=== PATIENT | male | born 1965 | race African-American/Black ===

== ENCOUNTER 2021-02-12 21:20 | Emergency (ER) | payer OTHER ==
[~2021-02-12] VITALS: Ht 188 cm; Wt 82.0 kg
[2021-02-12 23:44] LABS: BASOPHILS % 0.5 % (0.0-2.0); EOSINOPHILS % 2.6 % (0.0-5.0); HEMATOCRIT. 43.6 % (42.0-52.0); HEMOGLOBIN. 14.8 g/dL (14.0-18.0); LYMPHOCYTES % 22.2 % (20.0-50.0); MEAN CORPUSCULAR HEMOGLOBIN 30.7 pg (28.0-32.0); MEAN CORPUSCULAR VOLUME 90.7 fL (80.0-94.0); MEAN PLATELET VOLUME 8.2 fl (7.4-10.4); MONOCYTES % 5.9 % (2.0-8.0); NEUTROPHILS % 68.8 % (40.0-76.0); PLATELET 194 x1000/uL (130-400); RED BLOOD CELL COUNT 4.81 mill/uL (4.7-6.1); RED CELL DISTRIBUTION WIDTH 14.2 % (11.6-14.6)
[2021-02-12 23:51] LABS: CHLORIDE 107 mEq/L (98-107)
[2021-02-13 01:45] VITALS: BP 111/78
== END 2021-02-13 01:46 | disposition home or self-care (01) ==
LOC: ER 21:20
DX: R06.02 Shortness of breath (principal); F41.9 Anxiety disorder, unspecified; J44.1 Chronic obstructive pulmonary disease with (acute) exacerbation
CPT/HCPCS: 36415; 71045; 80053; 84443; 84484; 85025; 93005; 99285

== ENCOUNTER 2021-03-20 13:59 | Inpatient (IN) | payer MEDICAID, OTHER ==
[~2021-03-20] VITALS: Ht 200.7 cm; Wt 75.3 kg
[2021-03-20] MEDS ORDERED: METHYLPREDNISOLONE SOD SUCC 125 MG/2 ML VIAL IV STA (15:14)
[2021-03-20] MEDS ORDERED: IPRATROPIUM BROMIDE (0.02%) 0.5MG/2.5ML NEB HHN STA (15:14)
[2021-03-20 15:50] LABS: BASOPHILS % 1.1 % (0.0-2.0); EOSINOPHILS % 11.4 % (0.0-5.0); HEMATOCRIT. 43.5 % (42.0-52.0); HEMOGLOBIN. 14.5 g/dL (14.0-18.0); LYMPHOCYTES % 33.9 % (20.0-50.0); MEAN PLATELET VOLUME 8.3 fl (7.4-10.4); MONOCYTES % 6.8 % (2.0-8.0); NEUTROPHILS % 46.8 % (40.0-76.0); PLATELET 208 x1000/uL (130-400); RED BLOOD CELL COUNT 4.84 mill/uL (4.7-6.1); RED CELL DISTRIBUTION WIDTH 13.5 % (11.6-14.6)
[2021-03-20 15:56] LABS: CHLORIDE 106 mEq/L (98-107)
[2021-03-20] MEDS ORDERED: DOXYCYCLINE HYCLATE 100MG CAPSULE PO ONE (16:00)
[2021-03-20] MEDS: ALBUTEROL (0.083%) 2.5MG/3ML NEB HHN SCH ×3 (16:05→17:50)
[2021-03-21 00:55] VITALS: BP 151/87
[2021-03-21] MEDS ORDERED: MONT4GRA PO (01:40)
[2021-03-21] MEDS ORDERED: ALBU6.7H9 INH (01:40)
[2021-03-21] MEDS ORDERED: IPRATROPIUM/ALBUTEROL 0.5-3(2.5)MG/3ML NEB HHN PRN (02:00)
[2021-03-21 04:00] VITALS: BP 139/75
[2021-03-21 08:00] VITALS: BP 122/85
[2021-03-21] MEDS ORDERED: ENOXAPARIN 40MG/0.4ML SYR SUBCUT SCH (09:00)
[2021-03-21] MEDS: IPRATROPIUM/ALBUTEROL 0.5-3(2.5)MG/3ML NEB HHN SCH ×4 (10:09→21:19)
[2021-03-21] MEDS: METHYLPREDNISOLONE SOD SUCC 40 MG/ML VIAL IV SCH ×3 (10:27→22:15)
[2021-03-21] MEDS: FAMOTIDINE 20MG/2ML VIAL IV SCH (10:28)
[2021-03-21 12:00] VITALS: BP 143/90
[2021-03-21 16:00] VITALS: BP 124/77
[2021-03-21] MEDS ORDERED: GUAIFENESIN 200MG/10ML SUGAR FREE UDC PO PRN (17:30)
[2021-03-21] MEDS ORDERED: CLONIDINE 0.1MG TABLET PO PRN (17:30)
[2021-03-21] MEDS ORDERED: MAGNESIUM/ALUMINUM HYDROXIDE/SIMETHICONE 30ML UDC PO PRN (17:30)
[2021-03-21 20:00] VITALS: BP 126/76
[2021-03-21 21:39] LABS: PROTHROMBIN TIME 10.5 sec (9.6-11.0)
[2021-03-21] MEDS: ENOXAPARIN 80MG/0.8ML SYR SUBCUT SCH (22:15)
[2021-03-22] VITALS: BP 124/75
[2021-03-22] MEDS: IPRATROPIUM/ALBUTEROL 0.5-3(2.5)MG/3ML NEB HHN SCH ×7 (00:06→23:44)
[2021-03-22 04:00] VITALS: BP 117/67
[2021-03-22] MEDS: METHYLPREDNISOLONE SOD SUCC 40 MG/ML VIAL IV SCH ×3 (06:53→22:50)
[2021-03-22 07:40] LABS: BASOPHILS % 0.1 % (0.0-2.0); HEMATOCRIT. 42.4 % (42.0-52.0); HEMOGLOBIN. 14.2 g/dL (14.0-18.0); LYMPHOCYTES % 12.6 % (20.0-50.0); MEAN CORPUSCULAR HEMOGLOBIN 30.2 pg (28.0-32.0); MEAN CORPUSCULAR VOLUME 90.5 fL (80.0-94.0); MONOCYTES % 4.8 % (2.0-8.0); NEUTROPHILS % 82.5 % (40.0-76.0); PLATELET 230 x1000/uL (130-400); RED BLOOD CELL COUNT 4.69 mill/uL (4.7-6.1); RED CELL DISTRIBUTION WIDTH 13.7 % (11.6-14.6)
[2021-03-22 08:00] VITALS: BP 124/75
[2021-03-22 08:04] LABS: CHLORIDE 103 mEq/L (98-107)
[2021-03-22] MEDS: FAMOTIDINE 20MG/2ML VIAL IV SCH (08:51)
[2021-03-22] MEDS: ENOXAPARIN 80MG/0.8ML SYR SUBCUT SCH ×2 (10:33→22:50)
[2021-03-22 12:00] VITALS: BP 121/75
[2021-03-22] MEDS ORDERED: IOHEXOL-350 100 ML BOTTLE ONE (13:19)
[2021-03-22 16:00] VITALS: BP 130/83
[2021-03-22 20:00] VITALS: BP 126/74
[2021-03-23] VITALS: BP 120/62
[2021-03-23 04:00] VITALS: BP 118/74
[2021-03-23] MEDS: IPRATROPIUM/ALBUTEROL 0.5-3(2.5)MG/3ML NEB HHN SCH ×2 (04:00→07:52)
[2021-03-23 06:44] LABS: BASOPHILS % 0.2 % (0.0-2.0); EOSINOPHILS % 0.1 % (0.0-5.0); HEMATOCRIT. 42.9 % (42.0-52.0); LYMPHOCYTES % 9.2 % (20.0-50.0); MEAN CORPUSCULAR HEMOGLOBIN 29.8 pg (28.0-32.0); MEAN CORPUSCULAR VOLUME 91.2 fL (80.0-94.0); MEAN PLATELET VOLUME 9.2 fl (7.4-10.4); MONOCYTES % 2.8 % (2.0-8.0); NEUTROPHILS % 87.7 % (40.0-76.0); PLATELET 232 x1000/uL (130-400)
[2021-03-23 07:06] LABS: CHLORIDE 103 mEq/L (98-107)
[2021-03-23] MEDS: METHYLPREDNISOLONE SOD SUCC 40 MG/ML VIAL IV SCH (07:34)
[2021-03-23] MEDS ORDERED: XAR15 MT (07:39)
[2021-03-23 08:00] VITALS: BP 148/87
[2021-03-23] MEDS: FAMOTIDINE 20MG/2ML VIAL IV SCH (09:00)
[2021-03-23] MEDS: ENOXAPARIN 80MG/0.8ML SYR SUBCUT SCH (09:11)
[2021-03-23 09:20] VITALS: BP 148/87
== END 2021-03-23 10:00 | disposition home or self-care (01) | DRG 140 ==
LOC: ER 13:59 → EDBEDREQTM 19:34 → EDBEDREQ 19:34 → ENRESERV 23:07 → 7EST 03-21 01:25
PROVIDERS: ADMIT Internal Medicine; ATTEND Internal Medicine
DX: J44.1 Chronic obstructive pulmonary disease with (acute) exacerbation (principal); E44.1 Mild protein-calorie malnutrition; I82.409 Acute embolism and thrombosis of unspecified deep veins of unspecified lower extremity; Z68.1 Body mass index [BMI] 19.9 or less, adult
CPT/HCPCS: 36415; 71045; 71275; 80048; 80053; 83880; 84484; 85025; 93005; 93970; 94640; 99285; J1650; J2920; J2930; J3490; Q9967

== ENCOUNTER 2022-10-03 21:01 | Emergency (ER) | payer MEDICAID, OTHER ==
[~2022-10-03] VITALS: Ht 188 cm; Wt 91.0 kg
[~2022-10-03 21:01] MED LIST: ALBU6.7H3 INH; ALPR0.25 PO; LORA10TA7 PO; MONT4GRA14 PO; P20 MT; RIVA20TA PO; TIOT4MIS5 IH
[2022-10-03] MEDS ORDERED: IPRATROPIUM/ALBUTEROL 0.5-3(2.5)MG/3ML NEB HHN ONE (21:15)
[2022-10-03] MEDS ORDERED: METHYLPREDNISOLONE SOD SUCC 125 MG/2 ML VIAL IV ONE (21:30)
[2022-10-03 21:32] LABS: BASOPHILS % 0.9 % (0.0-2.0); EOSINOPHILS % 4.9 % (0.0-5.0); HEMATOCRIT. 39.5 % (42.0-52.0); HEMOGLOBIN. 12.5 g/dL (14.0-18.0); LYMPHOCYTES % 36.2 % (20.0-50.0); MEAN CORPUSCULAR HEMOGLOBIN 25.5 pg (28.0-32.0); MEAN CORPUSCULAR VOLUME 80.8 fL (80.0-94.0); MONOCYTES % 10.5 % (2.0-8.0); NEUTROPHILS % 47.5 % (40.0-76.0); PLATELET 154 x1000/uL (130-400); RED BLOOD CELL COUNT 4.89 mill/uL (4.7-6.1); RED CELL DISTRIBUTION WIDTH 21.9 % (11.6-14.6)
[2022-10-03 21:39] LABS: CHLORIDE 111 mEq/L (98-107)
[2022-10-03] MEDS ORDERED: ALBU6.7H3 INH (23:39)
[2022-10-03] MEDS ORDERED: GUAI-450 MT (23:39)
[2022-10-03] MEDS ORDERED: P50 MT (23:39)
[2022-10-03] MEDS ORDERED: ALBU2.5V13 NEB (23:39)
[2022-10-04 02:00] VITALS: BP 118/92
== END 2022-10-04 03:01 | disposition home or self-care (01) ==
LOC: ER 21:01
DX: J44.1 Chronic obstructive pulmonary disease with (acute) exacerbation (principal); Z87.01 Personal history of pneumonia (recurrent); Z79.899 Other long term (current) drug therapy
CPT/HCPCS: 36415; 71045; 80053; 83880; 84484; 85025; 93005; 94640; 96374; 99285; J2930; Z7610

== ENCOUNTER 2023-03-26 04:35 | Emergency (ER) | payer MEDICAID, OTHER ==
[~2023-03-26] VITALS: Ht 188 cm; Wt 70.0 kg
[~2023-03-26 04:35] MED LIST changes: +ALBU18HF2 IH; -ALBU6.7H3 INH; +FLUT1DIS3 INH; +GUAI600T26 MT; -P20 MT; +P50 MT; -TIOT4MIS5 IH
[2023-03-26] MEDS ORDERED: MAGNESIUM 2 G PREMIX 50 ML IV STA (05:17)
[2023-03-26] MEDS ORDERED: METHYLPREDNISOLONE SOD SUCC 125MG/2ML (ACT-O-VIAL) IV STA (05:17)
[2023-03-26] MEDS ORDERED: ALBUTEROL (0.083%) 2.5MG/3ML NEB HHN STA (05:17)
[2023-03-26] MEDS ORDERED: IPRATROPIUM BROMIDE (0.02%) 0.5MG/2.5ML NEB HHN STA (05:17)
[2023-03-26 05:35] VITALS: PULSE 73; RESP 18; O2SAT 96
[2023-03-26 06:05] LABS: BASOPHILS % 0.6 % (0.0-2.0); EOSINOPHILS % 7.4 % (0.0-5.0); HEMATOCRIT. 41.1 % (42.0-52.0); HEMOGLOBIN. 13.5 g/dL (14.0-18.0); MEAN PLATELET VOLUME 8.6 fl (7.4-10.4); MONOCYTES % 10.7 % (2.0-8.0); NEUTROPHILS % 40.3 % (40.0-76.0); PLATELET 207 x1000/uL (130-400); RED BLOOD CELL COUNT 4.67 mill/uL (4.7-6.1); RED CELL DISTRIBUTION WIDTH 15.7 % (11.6-14.6); WHITE BLOOD COUNT 5.1 x1000/uL (4.5-11.0)
[2023-03-26 06:22] LABS: CHLORIDE 111 mEq/L (98-107); INDEX HEMOLYSI 3 (1-3); INDEX ICTERIC 1 (1-4); INDEX LIPEMIC 1 (1-3); POTASSIUM 3.8 mEq/L (3.5-5.1); SODIUM 141 mEq/L (136-145)
[2023-03-26 06:37] LABS: ALANINE AMINOTRANSFERASE 42 IU/L (13-61); ASPARTATE AMINOTRANSFERASE 30 IU/L (15-37); BILIRUBIN TOTAL 0.4 mg/dL (0.1-1.0); CALCIUM 7.8 mg/dL (8.5-10.1); CARBON DIOXIDE 26 mEq/L (21-32); CREATININE 0.8 mg/dL (0.6-1.3); GLUCOSE 98 mg/dL (70-105); NT PRO B-TYPE NATRIURETIC PEP 60 pg/mL (5-125); PROTEIN TOTAL 6.4 g/dL (6.0-8.3); TROPONIN I HIGH SENSITIVITY 11 ng/L (<78); UREA NITROGEN BLOOD 11 mg/dL (7-21)
[2023-03-26 08:29] LABS: TROPONIN I HIGH SENSITIVITY 11 ng/L (<78)
[2023-03-26] MEDS ORDERED: P50 PO (08:49)
[2023-03-26] MEDS ORDERED: ALBU6.7H15 INH (08:50)
[2023-03-26 09:15] VITALS: BP 120/68; PULSE 70; RESP 16; TEMP 98.2
== END 2023-03-26 09:18 | disposition home or self-care (01) ==
LOC: ER 04:35
DX: J44.9 Chronic obstructive pulmonary disease, unspecified (principal)
CPT/HCPCS: 80053; 83880; 85025; 84484; 36415; 71045; 93005; 94644; 96365; 96375; 99285; J3475; J2930; Z7610 ×6

== ENCOUNTER 2024-02-25 05:32 | Emergency (ER) | payer MEDICAID, OTHER ==
[~2024-02-25] VITALS: Ht 188 cm; Wt 97.0 kg
[~2024-02-25 05:32] MED LIST changes: +ALBU6.7H15 INH; +P50 PO
[2024-02-25 06:18] LABS: CHLORIDE 105 mEq/L (98-107); EOSINOPHILS % 0.2 % (0.0-5.0); HEMATOCRIT. 43.1 % (42.0-52.0); HEMOGLOBIN. 14.4 g/dL (14.0-18.0); LYMPHOCYTES % 30.1 % (20.0-50.0); MEAN CORPUSCULAR HEMOGLOBIN 30.4 pg (28.0-32.0); MEAN CORPUSCULAR HGB CONC 33.5 g/dL (31.0-37.0); MEAN CORPUSCULAR VOLUME 90.8 fL (80.0-94.0); MEAN PLATELET VOLUME 8.9 fl (7.4-10.4); MONOCYTES % 9.9 % (2.0-8.0); NEUTROPHILS % 58.8 % (40.0-76.0); PLATELET 211 x1000/uL (130-400); POTASSIUM 2.9 mEq/L (3.5-5.1); RED BLOOD CELL COUNT 4.75 mill/uL (4.7-6.1); RED CELL DISTRIBUTION WIDTH 13.7 % (11.6-14.6); SODIUM 141 mEq/L (136-145); WHITE BLOOD COUNT 4.6 x1000/uL (4.5-11.0)
[2024-02-25 06:19] LABS: CALCIUM 10.8 mg/dL (8.7-10.4); CARBON DIOXIDE 25 mEq/L (21-32)
[2024-02-25 06:24] LABS: GLUCOSE 126 mg/dL (70-105); TROPONIN I HIGH SENSITIVITY 20 ng/L (3.0-53); UREA NITROGEN BLOOD 9 mg/dL (9-23)
[2024-02-25 06:26] LABS: ALANINE AMINOTRANSFERASE 32 IU/L (10-49); ALBUMIN 4.5 g/dL (3.2-4.8); ASPARTATE AMINOTRANSFERASE 39 IU/L (<34); BILIRUBIN DIRECT 0.2 mg/dL (<=3.0); BILIRUBIN TOTAL 0.4 mg/dL (0.1-1.0); PROTEIN TOTAL 7.3 g/dL (6.0-8.3)
[2024-02-25] MEDS: DEXAMETHASONE 4MG/ML 1ML VIAL IV ONE (06:46)
[2024-02-25] MEDS: FAMOTIDINE 20MG/2ML VIAL IV ONE (06:50)
[2024-02-25] MEDS: MAGNESIUM/ALUMINUM HYDROXIDE/SIMETHICONE 30ML UDC PO ONE (06:51)
[2024-02-25] MEDS: POTASSIUM CHLORIDE 20MEQ/PACKET PO ONE (08:06)
[2024-02-25 08:12] VITALS: PULSE 82; RESP 20; O2SAT 96
[2024-02-25] MEDS: ALBUTEROL (0.083%) 2.5MG/3ML NEB HHN STA (08:12)
[2024-02-25] MEDS: IPRATROPIUM BROMIDE (0.02%) 0.5MG/2.5ML NEB HHN STA (08:12)
[2024-02-25] MEDS: MAGNESIUM 2 G PREMIX 50 ML IV ONE (08:55)
[2024-02-25 12:59] VITALS: BP 119/83; PULSE 87; RESP 20; TEMP 36.94740; O2SAT 96
== END 2024-02-25 13:13 | disposition short-term general hospital (02) ==
LOC: ER 05:32
DX: J45.902 Unspecified asthma with status asthmaticus (principal); J44.1 Chronic obstructive pulmonary disease with (acute) exacerbation; Z88.6 Allergy status to analgesic agent; Z79.899 Other long term (current) drug therapy; Z98.890 Other specified postprocedural states
CPT/HCPCS: 36415; 71045; 80053; 80076; 84484; 85025; 93005; 94640; 96374; 96375; 99285; J1100; J3475; J3490